=== PATIENT | male | born 1950 | race Caucasian/White ===

== ENCOUNTER 2021-10-11 20:06 | Inpatient (IN) ==
[2021-10-11] MEDS ORDERED: Albuterol/Ipratropium NEB.SOL (2.5/0.5 MG) 3 ML NEB.SOLN INH ONE (20:20)
[2021-10-11] MEDS ORDERED: methylPREDNISolone SOD SUCC 125 mg 2 ML VIAL IV ONE (20:21)
[2021-10-11 20:32] LABS: Hematocrit 42 % (42-52); Hemoglobin 13.2 g/dL (14.0-18.0); Mean Corpuscular HGB Conc 31 g/dL (31-36); Mean Corpuscular Hemoglobin 26 pg (27-31); Mean Corpuscular Volume 84 fL (80-94); Mean Platelet Volume 7.7 fL (7.4-10.4); Platelet Count 154 10^3/uL (150-450); Red Blood Count 4.99 10^6 /uL (4.18-5.48); Red Cell Distribution Width 17 % (10-15); White Blood Count 14.9 10^3/uL (3.5-10.8)
[2021-10-11 20:52] LABS: PCO2 Arterial 59 mmHg (35-45); PO2 Arterial 107 mmHg (80-100)
[2021-10-11] MEDS ORDERED: Sterile Water for Inj 10 ML ONE (20:55)
[2021-10-11 20:59] LABS: High Sens Troponin Baseline 2205 pg/mL (<20)
[2021-10-11] MEDS ORDERED: Lactated Ringers 1000 ml BAG 500 ML IV ONE (21:00)
[2021-10-11 21:10] LABS: ABS Monocytes 3.2 10^3/ul (0-0.8); ABS Neutrophils 10.6 10^3/ul (1.5-7.7); Eosinophil % 0.1 %; Lymphocyte % 6.5 %
[2021-10-11] MEDS ORDERED: Furosemide 40 mg/4 ml IV VIAL IV SLOW PU ONE (21:10)
[2021-10-11 21:17] LABS: ALT 18 U/L (7-52); Albumin 3.5 g/dL (3.2-5.2); Albumin/Globulin Ratio 1.1 (1-3); Alkaline Phosphatase 117 U/L (35-149); Blood Urea Nitrogen 56 mg/dL (6-24); C Reactive Protein 317.81 mg/L (<8.01); CO2 Carbon Dioxide 26 mmol/L (22-32); Calcium 9.3 mg/dL (8.6-10.3); Chloride 104 mmol/L (101-111); Creatine Kinase 183 U/L (10-223); Globulin 3.1 g/dL (2-4); Glucose 189 mg/dL (70-100); Sodium 140 mmol/L (135-145); Total Protein 6.6 g/dL (6.4-8.9)
[2021-10-11 21:39] LABS: Anion Gap 10 mmol/L (2-11)
[2021-10-11] MEDS ORDERED: Piperacillin/Tazobac ADVAN 3.375 GM in NS 0.9% 100 ml BAG 100 ML IV ONE ×2 (21:49→23:25)
[2021-10-11] MEDS ORDERED: Vancomycin 1,000 MG in NS 0.9% 250 ml 250 ML IVPB ONE ×2 (21:50→23:25)
[2021-10-11 22:20] LABS: High Sensitivity Troponin 1 Hr 2756 pg/mL (<20)
[2021-10-11] MEDS ORDERED: Vancomycin 1500 MG IV - x ONCE IVPB ONE (23:00)
[2021-10-11] MEDS ORDERED: Azithromycin 500 mg/250 ml NS 500 MG/250 ML BAG IVPB ONE (23:12)
[2021-10-11 23:22] LABS: Activated Partial Thrombo Time 29.4 seconds (26.0-38.0); INR 1.19 (0.86-1.15)
[2021-10-11] MEDS ORDERED: Albuterol 2.5mg/3 ml (0.083%) NEB.SOLN INH PRN (23:25)
[2021-10-11] MEDS ORDERED: Dextrose 50% Syringe 50 ml 25 GM/50 ML SYRINGE IV PUSH PRN (23:25)
[2021-10-11 23:27] LABS: Urine Appearance Cloudy; Urine Bilirubin Negative (Negative); Urine Blood Negative (Negative); Urine Color Amber; Urine Glucose 2+(150 mg/dL) (Negative); Urine Ketones Trace (Negative); Urine Nitrite Negative (Negative); Urine Protein 2+(100 mg/dL) (Negative); Urine Specific Gravity 1.019 (1.002-1.030); Urine Urobilinogen Positive (Negative)
[2021-10-11 23:36] LABS: Urine Bacteria Absent (Absent); Urine Red Blood Cell Absent (Absent); Urine Squamous Epithelial Cell Present (Absent); Urine White Blood Cell Trace(0-5/hpf) (Absent)
[2021-10-11] MEDS ORDERED: Zosyn per Pharmacy NOTE FOLLOW UP SCH (23:45)
[2021-10-11] MEDS ORDERED: Vancomycin per Pharmacy 1 EA NOTE FOLLOW UP SCH (23:45)
[2021-10-11 23:48] LABS: Urine Benzodiazepine Screen None Detected (None Detect); Urine Cannabinoids Screen Presumptive Positive (None Detect); Urine Opiates Screen None Detected (None Detect)
[2021-10-11 23:58] LABS: Potassium Redraw 5.2 mmol/L (3.5-5.0)
[2021-10-12] MEDS: Albuterol/Ipratropium NEB.SOL (2.5/0.5 MG) 3 ML NEB.SOLN INH SCH ×5 (00:27→18:57)
[2021-10-12 00:29] LABS: ABS Lymphocytes 0.5 10^3/ul (1.0-4.8); ABS Monocytes 1.7 10^3/ul (0-0.8); ABS Neutrophils 7.7 10^3/ul (1.5-7.7); Eosinophil % 0.1 %; Hematocrit 41 % (42-52); Hemoglobin 12.8 g/dL (14.0-18.0); Lymphocyte % 5.4 %; Mean Corpuscular HGB Conc 31 g/dL (31-36); Mean Corpuscular Hemoglobin 26 pg (27-31); Mean Corpuscular Volume 84 fL (80-94); Mean Platelet Volume 7.7 fL (7.4-10.4); Nucleated Red Blood Cells % 0.1; Platelet Count 139 10^3/uL (150-450); Red Blood Count 4.85 10^6 /uL (4.18-5.48); Red Cell Distribution Width 17 % (10-15)
[2021-10-12] MEDS: Heparin 5000 UNITS/ML 1 mL VIAL IV SCH ×5 (00:33→21:58)
[2021-10-12] MEDS: Heparin DRIP 25,000 UNITS BAG 25,000 UNITS/500 ML BAG IV SCH ×3 (00:34→21:41)
[2021-10-12 00:46] LABS: PCO2 Arterial 56 mmHg (35-45); PO2 Arterial 82 mmHg (80-100)
[2021-10-12 00:46] LABS: Potassium 5.1 mmol/L (3.5-5.0)
[2021-10-12 01:21] LABS: HIV 4th Generation Nonreactive (Nonreactive)
[2021-10-12] MEDS ORDERED: NS 0.9% 250 ml 250 ML ONE (02:07)
[2021-10-12] MEDS ORDERED: NS 0.9% 100 ml BAG 100 ML ONE (02:07)
[2021-10-12] MEDS: Lactulose 30 ml UDC PO SCH ×5 (02:35→20:26)
[2021-10-12] MEDS: Aspirin EC 81 mg TAB.EC (enteric coated) PO SCH ×2 (02:35→07:44)
[2021-10-12] MEDS: Lidocaine PATCH 5% PATCH TRANSDERM SCH ×2 (02:36→20:30)
[2021-10-12 02:42] LABS: PCO2 Arterial 55 mmHg (35-45); PO2 Arterial 89 mmHg (80-100)
[2021-10-12] MEDS: ZOSYN 3.375 GM Q8H per EXTENDED INFUSION IV SCH ×2 (03:52→11:39)
[2021-10-12 06:56] LABS: Urine Appearance Turbid; Urine Bilirubin Negative (Negative); Urine Blood 2+ (Negative); Urine Color Amber; Urine Glucose 1+(50 mg/dL) (Negative); Urine Ketones Negative (Negative); Urine Nitrite Negative (Negative); Urine Protein 1+(30 mg/dL) (Negative); Urine Specific Gravity 1.016 (1.002-1.030); Urine Urobilinogen Negative (Negative)
[2021-10-12 06:58] LABS: Urine Creatinine Concentration 151.21 mg/dL
[2021-10-12 07:03] LABS: ABS Lymphocytes 0.6 10^3/ul (1.0-4.8); ABS Monocytes 0.8 10^3/ul (0-0.8); ABS Neutrophils 7.3 10^3/ul (1.5-7.7); Eosinophil % 0.3 %; Hematocrit 37 % (42-52); Hemoglobin 12.2 g/dL (14.0-18.0); Lymphocyte % 7.2 %; Mean Corpuscular HGB Conc 33 g/dL (31-36); Mean Corpuscular Hemoglobin 28 pg (27-31); Mean Corpuscular Volume 84 fL (80-94); Mean Platelet Volume 7.8 fL (7.4-10.4); Platelet Count 146 10^3/uL (150-450); Red Blood Count 4.42 10^6 /uL (4.18-5.48); Red Cell Distribution Width 17 % (10-15); White Blood Count 8.8 10^3/uL (3.5-10.8)
[2021-10-12 07:24] LABS: Urine Bacteria Absent (Absent); Urine Red Blood Cell 3+(>10/hpf) (Absent); Urine Squamous Epithelial Cell Present (Absent); Urine White Blood Cell 2+(11-20/hpf) (Absent)
[2021-10-12] MEDS: Acetaminophen IV 1 GM/100ML 100 ML IV PRN ×2 (08:11→21:27)
[2021-10-12] MEDS ORDERED: Perflutren Lipid Microsphere 3 ML VIAL ONE (08:20)
[2021-10-12 08:44] LABS: Erythrocyte Sed Rate 103 mm/Hr (0-19)
[2021-10-12 08:51] LABS: Calcium 8.6 mg/dL (8.6-10.3); Magnesium 2.3 mg/dL (1.9-2.7); Potassium 4.3 mmol/L (3.5-5.0)
[2021-10-12 08:56] LABS: eGFR CKD-EPI 26.5 (>60)
[2021-10-12 10:18] LABS: Hepatitis B Surface Antigen Nonreactive (Nonreactive)
[2021-10-12 10:23] LABS: Hepatitis A Ab IgM Negative (Negative)
[2021-10-12 10:24] LABS: Hepatitis B Core IgM Nonreactive (Nonreactive)
[2021-10-12 10:51] LABS: Hepatitis C Antibody Reactive (Negative)
[2021-10-12] MEDS: Mometasone/Formoter 200/5 MDI INH SCH ×2 (10:53→18:58)
[2021-10-12 12:26] LABS: High Sensitivity Troponin 1 Hr 4924 pg/mL (<20)
[2021-10-12] MEDS ORDERED: Vancomycin Random Level NOTE FOLLOW UP ONE (13:30)
[2021-10-12] MEDS: cefTRIAXone 1 gm/50 mL D5W 1 GM/50 ML BAG IV SCH (15:27)
[2021-10-12] MEDS ORDERED: Vancomycin 1,250 MG in NS 0.9% 250 ml 250 ML IVPB ONE (16:00)
[2021-10-12 18:10] LABS: Calcium 8.6 mg/dL (8.6-10.3); Potassium 4.4 mmol/L (3.5-5.0)
[2021-10-12 18:21] LABS: eGFR CKD-EPI 23.7 (>60)
[2021-10-12] MEDS: methylPREDNISolone SOD SUCC 40 mg/ml 1 ml VIAL IV SCH (18:24)
[2021-10-12 20:17] LABS: PCO2 Arterial 58 mmHg (35-45); PO2 Arterial 92 mmHg (80-100)
[2021-10-12] MEDS: Azithromycin 500 mg/250 ml NS 500 MG/250 ML BAG IVPB SCH (23:21)
[2021-10-13] MEDS: Albuterol/Ipratropium NEB.SOL (2.5/0.5 MG) 3 ML NEB.SOLN INH SCH ×4 (01:31→20:01)
[2021-10-13] MEDS: methylPREDNISolone SOD SUCC 40 mg/ml 1 ml VIAL IV SCH ×3 (01:43→18:12)
[2021-10-13] MEDS: NORMOSOL-R pH 7.4 1000 mL BAG 1,000 ML IV SCH ×2 (01:43→22:17)
[2021-10-13 04:45] LABS: Hematocrit 36 % (42-52); Hemoglobin 11.2 g/dL (14.0-18.0); Mean Corpuscular HGB Conc 32 g/dL (31-36); Mean Corpuscular Hemoglobin 26 pg (27-31); Mean Corpuscular Volume 84 fL (80-94); Mean Platelet Volume 7.6 fL (7.4-10.4); Platelet Count 126 10^3/uL (150-450); Red Blood Count 4.24 10^6 /uL (4.18-5.48); Red Cell Distribution Width 17 % (10-15); White Blood Count 11.9 10^3/uL (3.5-10.8)
[2021-10-13 05:15] LABS: Calcium 8.6 mg/dL (8.6-10.3); Potassium 3.8 mmol/L (3.5-5.0); Vancomycin Random 17.9 mcg/mL; eGFR CKD-EPI 27.7 (>60)
[2021-10-13] MEDS ORDERED: Vancomycin Random Level NOTE FOLLOW UP ONE (06:00)
[2021-10-13] MEDS: Acetaminophen IV 1 GM/100ML 100 ML IV PRN (06:05)
[2021-10-13] MEDS: Aspirin EC 81 mg TAB.EC (enteric coated) PO SCH (07:26)
[2021-10-13] MEDS: Lactulose 30 ml UDC PO SCH ×4 (07:26→20:08)
[2021-10-13] MEDS: Mometasone/Formoter 200/5 MDI INH SCH ×2 (08:35→20:01)
[2021-10-13 09:16] LABS: PCO2 Arterial 67 mmHg (35-45); PO2 Arterial 115 mmHg (80-100)
[2021-10-13 09:48] LABS: ABS Lymphocytes 0.7 10^3/ul (1.0-4.8); ABS Monocytes 1.3 10^3/ul (0-0.8); ABS Neutrophils 9.9 10^3/ul (1.5-7.7); Lymphocyte % 5.5 %
[2021-10-13] MEDS ORDERED: Sodium Chloride(INHALANT) 7% 4 ML NEB.SOLN INH ONE (10:00)
[2021-10-13] MEDS ORDERED: Vancomycin 750 MG in NS 0.9% 250 ML IVPB ONE (11:00)
[2021-10-13 12:15] LABS: TB1 Ag minus Nil Result -0.03 IU/mL; TB2 Ag minus Nil Result -0.03 IU/mL
[2021-10-13 12:56] LABS: QuantiferonTb Gold Plus Result Indeterminate (Negative)
[2021-10-13 13:02] LABS: Complement C3 107 mg/dL (75 - 175)
[2021-10-13 13:04] LABS: PCO2 Arterial 65 mmHg (35-45); PO2 Arterial 120 mmHg (80-100)
[2021-10-13] MEDS: cefTRIAXone 1 gm/50 mL D5W 1 GM/50 ML BAG IV SCH (14:26)
[2021-10-13 16:51] LABS: SS-A/Ro Antibody <0.2 U; SS-B/La Antibody <0.2 U
[2021-10-13 18:30] LABS: Adenovirus Undetected (Undetected); Bordetella parapertussis Undetected (Undetected); Bordetella pertussis Undetected (Undetected); Chlamydophila pneumoniae Undetected (Undetected); Coronavirus 229E Undetected (Undetected); Coronavirus HKU1 Undetected (Undetected); Coronavirus NL63 Undetected (Undetected); Coronavirus OC43 Undetected (Undetected); Human Metapneumovirus Undetected (Undetected); Human Rhinovirus/Enterovirus Undetected (Undetected); Influenza A Undetected (Undetected); Influenza B Undetected (Undetected); Mycoplasmoides pneumoniae Undetected (Undetected); Parainfluenza Virus 1 Undetected (Undetected); Parainfluenza Virus 2 Undetected (Undetected); Parainfluenza Virus 3 Undetected (Undetected); Parainfluenza Virus 4 Undetected (Undetected); Respiratory Syncytial Virus Undetected (Undetected); Specimen Source NASOPHARYNGEAL SWAB
[2021-10-13] MEDS: Lidocaine PATCH 5% PATCH TRANSDERM SCH (20:09)
[2021-10-13 20:35] LABS: Calcium 8.5 mg/dL (8.6-10.3); Magnesium 2.6 mg/dL (1.9-2.7); Potassium 3.8 mmol/L (3.5-5.0); eGFR CKD-EPI 38.5 (>60)
[2021-10-13] MEDS: Azithromycin 500 mg/250 ml NS 500 MG/250 ML BAG IVPB SCH (23:05)
[2021-10-14] MEDS: methylPREDNISolone SOD SUCC 40 mg/ml 1 ml VIAL IV SCH ×3 (00:58→18:22)
[2021-10-14] MEDS: Albuterol/Ipratropium NEB.SOL (2.5/0.5 MG) 3 ML NEB.SOLN INH SCH ×5 (02:22→23:42)
[2021-10-14 05:27] LABS: Hematocrit 36 % (42-52); Hemoglobin 11.2 g/dL (14.0-18.0); Mean Corpuscular HGB Conc 32 g/dL (31-36); Mean Corpuscular Hemoglobin 26 pg (27-31); Mean Corpuscular Volume 83 fL (80-94); Platelet Count 133 10^3/uL (150-450); Red Blood Count 4.31 10^6 /uL (4.18-5.48); Red Cell Distribution Width 17 % (10-15); White Blood Count 12.5 10^3/uL (3.5-10.8)
[2021-10-14] MEDS ORDERED: Vancomycin Random Level NOTE FOLLOW UP ONE (06:00)
[2021-10-14 06:24] LABS: Calcium 8.7 mg/dL (8.6-10.3); Potassium 3.7 mmol/L (3.5-5.0); Vancomycin Random 14.4 mcg/mL; eGFR CKD-EPI 47.9 (>60)
[2021-10-14 06:57] LABS: Microcytosis 1+
[2021-10-14 06:58] LABS: ABS Basophils 0.1 10^3/ul (0-0.2); ABS Lymphocytes 0.5 10^3/ul (1.0-4.8); ABS Monocytes 0.6 10^3/ul (0-0.8); ABS Neutrophils 11.3 10^3/ul (1.5-7.7); Lymphocyte % 3.7 %
[2021-10-14] MEDS: Mometasone/Formoter 200/5 MDI INH SCH ×2 (07:07→19:46)
[2021-10-14] MEDS ORDERED: Bumetanide IV 0.25 MG/ML 4 ml VIAL (1 mg) SLOW PUSH ONE (08:16)
[2021-10-14] MEDS: NORMOSOL-R pH 7.4 1000 mL BAG 1,000 ML IV SCH (08:26)
[2021-10-14] MEDS: Lactulose 30 ml UDC PO SCH (08:29)
[2021-10-14] MEDS: Aspirin EC 81 mg TAB.EC (enteric coated) PO SCH (08:29)
[2021-10-14] MEDS ORDERED: Vancomycin 1,250 MG IV x ONCE IVPB ONE (09:00)
[2021-10-14] MEDS: cefTRIAXone 1 gm/50 mL D5W 1 GM/50 ML BAG IV SCH (12:21)
[2021-10-14] MEDS ORDERED: Albuterol/Ipratropium NEB.SOL (2.5/0.5 MG) 3 ML NEB.SOLN INH SCH (13:00)
[2021-10-14 13:20] LABS: Cyclic Citrullinated Pept IgG <15.6 U
[2021-10-14 15:14] LABS: Mycoplasma pneumoniae IgG Ab Negative (Negative); Mycoplasma pneumoniae IgM Ab Negative (Negative)
[2021-10-14] MEDS: Lidocaine PATCH 5% PATCH TRANSDERM SCH (20:44)
[2021-10-14] MEDS: Azithromycin 500 mg/250 ml NS 500 MG/250 ML BAG IVPB SCH (22:54)
[2021-10-15] MEDS: methylPREDNISolone SOD SUCC 40 mg/ml 1 ml VIAL IV SCH ×2 (00:30→08:13)
[2021-10-15] MEDS: Acetaminophen IV 1 GM/100ML 100 ML IV PRN (03:36)
[2021-10-15] MEDS: Albuterol/Ipratropium NEB.SOL (2.5/0.5 MG) 3 ML NEB.SOLN INH SCH ×2 (04:26→07:41)
[2021-10-15] MEDS ORDERED: Vancomycin Random Level NOTE FOLLOW UP ONE (06:00)
[2021-10-15] MEDS: Mometasone/Formoter 200/5 MDI INH SCH ×2 (07:54→21:02)
[2021-10-15] MEDS ORDERED: Albuterol/Ipratropium NEB.SOL (2.5/0.5 MG) 3 ML NEB.SOLN INH PRN ×2 (07:57→09:11)
[2021-10-15] MEDS: Aspirin EC 81 mg TAB.EC (enteric coated) PO SCH (08:13)
[2021-10-15 11:17] LABS: Hematocrit 34 % (42-52); Hemoglobin 10.6 g/dL (14.0-18.0); Mean Corpuscular HGB Conc 32 g/dL (31-36); Mean Corpuscular Hemoglobin 26 pg (27-31); Mean Corpuscular Volume 82 fL (80-94); Mean Platelet Volume 7.8 fL (7.4-10.4); Platelet Count 134 10^3/uL (150-450); Red Blood Count 4.07 10^6 /uL (4.18-5.48); Red Cell Distribution Width 16 % (10-15)
[2021-10-15 11:22] LABS: ABS Lymphocytes 0.4 10^3/ul (1.0-4.8); ABS Monocytes 0.9 10^3/ul (0-0.8); ABS Neutrophils 7.7 10^3/ul (1.5-7.7); Lymphocyte % 4.1 %; Nucleated Red Blood Cells % 0.2
[2021-10-15 12:06] LABS: Calcium 9.1 mg/dL (8.6-10.3); Magnesium 2.4 mg/dL (1.9-2.7); Phosphorus 1.3 mg/dL (2.5-5.0); Potassium 3.4 mmol/L (3.5-5.0); eGFR CKD-EPI 61.6 (>60)
[2021-10-15] MEDS: cefTRIAXone 1 gm/50 mL D5W 1 GM/50 ML BAG IV SCH (12:46)
[2021-10-15] MEDS ORDERED: Potassium Phosphate IV 15 MMOLE in NS 0.9% 250 ml 250 ML IVPB ONE (14:47)
[2021-10-15] MEDS: Lidocaine PATCH 5% PATCH TRANSDERM SCH (21:02)
[2021-10-16] MEDS: Mometasone/Formoter 200/5 MDI INH SCH ×2 (07:40→19:21)
[2021-10-16] MEDS: Aspirin EC 81 mg TAB.EC (enteric coated) PO SCH (09:06)
[2021-10-16] MEDS: cefTRIAXone 1 gm/50 mL D5W 1 GM/50 ML BAG IV SCH (11:29)
[2021-10-17] MEDS: Lidocaine PATCH 5% PATCH TRANSDERM SCH ×2 (00:47→22:30)
[2021-10-17] MEDS: Mometasone/Formoter 200/5 MDI INH SCH ×2 (07:54→20:52)
[2021-10-17] MEDS: Aspirin EC 81 mg TAB.EC (enteric coated) PO SCH (08:21)
[2021-10-17 10:58] LABS: Hematocrit 37 % (42-52); Hemoglobin 11.7 g/dL (14.0-18.0); Mean Corpuscular HGB Conc 32 g/dL (31-36); Mean Corpuscular Hemoglobin 27 pg (27-31); Mean Corpuscular Volume 83 fL (80-94); Mean Platelet Volume 7.9 fL (7.4-10.4); Platelet Count 122 10^3/uL (150-450); Red Blood Count 4.39 10^6 /uL (4.18-5.48); Red Cell Distribution Width 17 % (10-15); White Blood Count 11.2 10^3/uL (3.5-10.8)
[2021-10-17 11:38] LABS: Calcium 9.6 mg/dL (8.6-10.3); Magnesium 2.4 mg/dL (1.9-2.7); Potassium 4.4 mmol/L (3.5-5.0); eGFR CKD-EPI 72.6 (>60)
[2021-10-17 13:16] LABS: ABS Lymphocytes 0.6 10^3/ul (1.0-4.8); ABS Monocytes 0.8 10^3/ul (0-0.8); ABS Neutrophils 9.7 10^3/ul (1.5-7.7); Eosinophil % 0.1 %; Lymphocyte % 5.8 %; Nucleated Red Blood Cells % 0.1
[2021-10-17 21:29] LABS: Anaplasma phagocytophilum Negative (Negative); B. miyamotoi PCR, B Negative (Negative); Babesia divergens/MO-1 Negative (Negative); Babesia ducani Negative (Negative); Ehrlichia chaffeensis Negative (Negative); Ehrlichia ewingii/canis Negative (Negative); Ehrlichia muris eauclairensis Negative (Negative)
[2021-10-18] MEDS: Mometasone/Formoter 200/5 MDI INH SCH ×2 (07:38→19:50)
[2021-10-18] MEDS: Aspirin EC 81 mg TAB.EC (enteric coated) PO SCH (08:15)
[2021-10-18] MEDS: Lidocaine PATCH 5% PATCH TRANSDERM SCH (22:27)
[2021-10-19] MEDS: Mometasone/Formoter 200/5 MDI INH SCH ×2 (07:50→19:46)
[2021-10-19] MEDS: Aspirin EC 81 mg TAB.EC (enteric coated) PO SCH (08:50)
[2021-10-19 14:07] LABS: Calcium 9.3 mg/dL (8.6-10.3); Magnesium 2.2 mg/dL (1.9-2.7); eGFR CKD-EPI 74.2 (>60)
[2021-10-19] MEDS: Lidocaine PATCH 5% PATCH TRANSDERM SCH (22:14)
[2021-10-20 06:06] LABS: ABS Lymphocytes 0.6 10^3/ul (1.0-4.8); ABS Monocytes 0.6 10^3/ul (0-0.8); ABS Neutrophils 14.2 10^3/ul (1.5-7.7); Hematocrit 34 % (42-52); Hemoglobin 10.9 g/dL (14.0-18.0); Lymphocyte % 3.7 %; Mean Corpuscular HGB Conc 32 g/dL (31-36); Mean Corpuscular Hemoglobin 27 pg (27-31); Mean Corpuscular Volume 82 fL (80-94); Mean Platelet Volume 8.6 fL (7.4-10.4); Platelet Count 105 10^3/uL (150-450); Red Blood Count 4.08 10^6 /uL (4.18-5.48); Red Cell Distribution Width 16 % (10-15); White Blood Count 15.4 10^3/uL (3.5-10.8)
[2021-10-20 06:31] LABS: Calcium 9.2 mg/dL (8.6-10.3); Magnesium 2.2 mg/dL (1.9-2.7); Potassium 4.6 mmol/L (3.5-5.0); eGFR CKD-EPI 73.4 (>60)
[2021-10-20] MEDS ORDERED: ceFAZolin 1 GM/10 ML flush SYRINGE for pocket flush (cardiology) FLUSH ONE (06:45)
[2021-10-20] MEDS ORDERED: ceFAZolin 2 GM in NS PREMIX 2 GM/100 ML BAG IVPB ONE (07:00)
[2021-10-20] MEDS ORDERED: NS 0.9% 1000 ml BAG 1,000 ML IV SCH (07:00)
[2021-10-20] MEDS: Aspirin EC 81 mg TAB.EC (enteric coated) PO SCH (08:10)
[2021-10-20] MEDS: Mometasone/Formoter 200/5 MDI INH SCH ×2 (08:49→19:07)
[2021-10-20] MEDS: Lidocaine PATCH 5% PATCH TRANSDERM SCH (21:49)
[2021-10-21] MEDS ORDERED: NS 0.9% 1000 ml BAG 1,000 ML IV SCH (01:15)
[2021-10-21 06:23] LABS: ABS Eosinophils 0.1 10^3/ul (0-0.6); ABS Lymphocytes 1.1 10^3/ul (1.0-4.8); ABS Monocytes 0.8 10^3/ul (0-0.8); ABS Neutrophils 10.5 10^3/ul (1.5-7.7); Eosinophil % 0.4 %; Hematocrit 34 % (42-52); Hemoglobin 11.2 g/dL (14.0-18.0); Lymphocyte % 8.6 %; Mean Corpuscular HGB Conc 33 g/dL (31-36); Mean Corpuscular Hemoglobin 27 pg (27-31); Mean Corpuscular Volume 83 fL (80-94); Mean Platelet Volume 8.2 fL (7.4-10.4); Platelet Count 108 10^3/uL (150-450); Red Cell Distribution Width 16 % (10-15); White Blood Count 12.4 10^3/uL (3.5-10.8)
[2021-10-21 06:41] LABS: Blood Urea Nitrogen 40 mg/dL (6-24); CO2 Carbon Dioxide 35 mmol/L (22-32); Calcium 9.2 mg/dL (8.6-10.3); Chloride 105 mmol/L (101-111); Glucose 138 mg/dL (70-100); Magnesium 2.1 mg/dL (1.9-2.7); Potassium 4.8 mmol/L (3.5-5.0); Sodium 139 mmol/L (135-145); eGFR CKD-EPI 71.8 (>60)
[2021-10-21] MEDS ORDERED: ceFAZolin 1 GM/10 ML flush SYRINGE for pocket flush (cardiology) FLUSH ONE (06:45)
[2021-10-21] MEDS ORDERED: ceFAZolin VIAL 1 GM in NS 0.9% 50 ML 50 ML IVPB ONE (06:45)
[2021-10-21] MEDS ORDERED: ceFAZolin 2 GM in NS PREMIX 2 GM/100 ML BAG IVPB ONE (06:45)
[2021-10-21] MEDS ORDERED: Lidocaine 1% MPF 5 ML VIAL ONE (06:50)
[2021-10-21] MEDS ORDERED: fentaNYL 100 mcg/2 ml 50 MCG/ML VIAL ONE (06:56)
[2021-10-21] MEDS ORDERED: Midazolam 5 mg/5 ml VIAL 1 mg/ml 5 ml VIAL (5 mg) ONE (06:56)
[2021-10-21 08:03] LABS: C Reactive Protein 5.67 mg/L (<8.01)
[2021-10-21] MEDS: Mometasone/Formoter 200/5 MDI INH SCH ×2 (08:18→19:33)
[2021-10-21] MEDS: Aspirin EC 81 mg TAB.EC (enteric coated) PO SCH (09:20)
[2021-10-21] MEDS: ceFAZolin 1 GM ADVAN 1 GM in NS 0.9% 50 ML 50 ML IVPB SCH ×2 (15:23→23:46)
[2021-10-21] MEDS: Lidocaine PATCH 5% PATCH TRANSDERM SCH (22:00)
[2021-10-22] MEDS: Mometasone/Formoter 200/5 MDI INH SCH ×2 (08:27→19:43)
[2021-10-22 08:52] LABS: ABS Monocytes 0.8 10^3/ul (0-0.8); ABS Neutrophils 9.5 10^3/ul (1.5-7.7); Eosinophil % 0.3 %; Hematocrit 35 % (42-52); Hemoglobin 11.4 g/dL (14.0-18.0); Lymphocyte % 8.8 %; Mean Corpuscular HGB Conc 33 g/dL (31-36); Mean Corpuscular Hemoglobin 27 pg (27-31); Mean Corpuscular Volume 82 fL (80-94); Mean Platelet Volume 7.9 fL (7.4-10.4); Platelet Count 105 10^3/uL (150-450); Red Blood Count 4.24 10^6 /uL (4.18-5.48); Red Cell Distribution Width 17 % (10-15); White Blood Count 11.4 10^3/uL (3.5-10.8)
[2021-10-22] MEDS: ceFAZolin 1 GM ADVAN 1 GM in NS 0.9% 50 ML 50 ML IVPB SCH (09:34)
[2021-10-22] MEDS: Aspirin EC 81 mg TAB.EC (enteric coated) PO SCH (09:34)
[2021-10-22 09:43] LABS: Potassium 4.4 mmol/L (3.5-5.0); eGFR CKD-EPI 80.5 (>60)
[2021-10-22 11:59] VITALS: BP 127/89
== END 2021-10-22 14:30 | disposition home or self-care (01) | DRG 853 ==
LOC: ED 20:06 → SUATTDRO 23:17 → EDHOLD 23:17 → ICU 10-12 00:20 → MEDTELE 10-17 21:10
PROVIDERS: ADMIT Internal Medicine; ATTEND Hospitalist

== ENCOUNTER 2022-03-02 23:27 | Inpatient (IN) ==
[2022-03-02] MEDS ORDERED: methylPREDNISolone SOD SUCC 125 mg 2 ML VIAL IV ONE (23:42)
[2022-03-02] MEDS ORDERED: Albuterol/Ipratropium NEB.SOL (2.5/0.5 MG) 3 ML NEB.SOLN INH ONE (23:43)
[2022-03-03 00:24] LABS: PCO2 Arterial 43 mmHg (35-45); PO2 Arterial 77 mmHg (80-100)
[2022-03-03 00:24] LABS: Hematocrit 38 % (42-52); Hemoglobin 12.1 g/dL (14.0-18.0); Mean Corpuscular HGB Conc 32 g/dL (31-36); Mean Corpuscular Hemoglobin 26 pg (27-31); Mean Corpuscular Volume 83 fL (80-94); Mean Platelet Volume 7.7 fL (7.4-10.4); Platelet Count 92 10^3/uL (150-450); Red Blood Count 4.57 10^6 /uL (4.18-5.48); Red Cell Distribution Width 16 % (10-15); White Blood Count 9.7 10^3/uL (3.5-10.8)
[2022-03-03 00:48] LABS: INR 1.16 (0.89-1.11)
[2022-03-03 01:03] LABS: Albumin 3.5 g/dL (3.2-5.2); Albumin/Globulin Ratio 1.5 (1-3); C Reactive Protein 67.85 mg/L (<8.01); Calcium 9.2 mg/dL (8.6-10.3); Globulin 2.3 g/dL (2-4); Potassium 4.3 mmol/L (3.5-5.0); Total Bilirubin 0.9 mg/dL (0.2-1.0); Total Protein 5.8 g/dL (6.4-8.9); eGFR CKD-EPI 69.8 (>60)
[2022-03-03 02:18] LABS: RBC Morphology Normal (Normal)
[2022-03-03 02:19] LABS: ABS Lymphocytes 0.5 10^3/ul (1.0-4.8); ABS Neutrophils 8.2 10^3/ul (1.5-7.7); Lymphocyte % 5.5 %
[2022-03-03 02:21] LABS: High Sensitivity Troponin 1 Hr 1788 pg/mL (<20)
[2022-03-03] MEDS ORDERED: Iodixanol (CONTRAST) 320 MG/ML 100 ML SDV IV ONE (02:37)
[2022-03-03 03:57] LABS: INR 1.18 (0.89-1.11)
[2022-03-03 04:37] LABS: Albumin 3.4 g/dL (3.2-5.2); Albumin/Globulin Ratio 1.4 (1-3); Calcium 9.1 mg/dL (8.6-10.3); Globulin 2.4 g/dL (2-4); Potassium 4.5 mmol/L (3.5-5.0); Total Bilirubin 0.9 mg/dL (0.2-1.0); Total Protein 5.8 g/dL (6.4-8.9); eGFR CKD-EPI 77.2 (>60)
[2022-03-03] MEDS ORDERED: Dextrose 50% Syringe 50 ml 25 GM/50 ML SYRINGE IV PUSH PRN (04:41)
[2022-03-03] MEDS ORDERED: Remdesivir 100 mg Vial 200 MG in NS 0.9% 250 ml 210 ML IV ONE (05:00)
[2022-03-03] MEDS: Enoxaparin 40 MG/0.4 ML SYR SUBCUT SCH (08:42)
[2022-03-03] MEDS: Aspirin EC 81 mg TAB.EC (enteric coated) PO SCH (09:22)
[2022-03-03 10:22] LABS: High Sensitivity Troponin 3 Hr 849 pg/mL (<20)
[2022-03-03] MEDS: Mometasone/Formoter 200/5 MDI INH SCH ×2 (16:32→19:57)
[2022-03-04] MEDS: Enoxaparin 40 MG/0.4 ML SYR SUBCUT SCH (05:57)
[2022-03-04 06:40] LABS: ABS Lymphocytes 0.7 10^3/ul (1.0-4.8); ABS Monocytes 0.9 10^3/ul (0-0.8); ABS Neutrophils 10.7 10^3/ul (1.5-7.7); Hematocrit 35 % (42-52); Hemoglobin 11.3 g/dL (14.0-18.0); Lymphocyte % 5.4 %; Mean Corpuscular HGB Conc 32 g/dL (31-36); Mean Corpuscular Hemoglobin 26 pg (27-31); Mean Corpuscular Volume 82 fL (80-94); Mean Platelet Volume 8.4 fL (7.4-10.4); Platelet Count 104 10^3/uL (150-450); Red Blood Count 4.26 10^6 /uL (4.18-5.48); Red Cell Distribution Width 16 % (10-15); White Blood Count 12.4 10^3/uL (3.5-10.8)
[2022-03-04 06:42] LABS: INR 1.1 (0.89-1.11)
[2022-03-04 07:24] LABS: Albumin/Globulin Ratio 1.3 (1-3); Calcium 8.8 mg/dL (8.6-10.3); Globulin 2.4 g/dL (2-4); Potassium 4.3 mmol/L (3.5-5.0); Total Bilirubin 0.5 mg/dL (0.2-1.0); Total Protein 5.4 g/dL (6.4-8.9)
[2022-03-04] MEDS: Mometasone/Formoter 200/5 MDI INH SCH ×2 (08:01→20:18)
[2022-03-04] MEDS: Aspirin EC 81 mg TAB.EC (enteric coated) PO SCH (08:11)
[2022-03-04] MEDS: Remdesivir 100 mg Vial 100 MG in NS 0.9% 250 ml 230 ML IV SCH (08:12)
[2022-03-04] MEDS ORDERED: Lactated Ringers 1000 ml BAG 1,000 ML IV SCH ×2 (18:00→21:37)
[2022-03-04] MEDS: Benzocaine (plain) Lozenge 15 MG MT PRN (20:22)
[2022-03-05] MEDS: Enoxaparin 40 MG/0.4 ML SYR SUBCUT SCH (05:03)
[2022-03-05 05:48] LABS: INR 1.1 (0.89-1.11)
[2022-03-05 06:17] LABS: Albumin 3.1 g/dL (3.2-5.2); Albumin/Globulin Ratio 1.2 (1-3); Globulin 2.6 g/dL (2-4); Potassium 4.2 mmol/L (3.5-5.0); Total Bilirubin 0.6 mg/dL (0.2-1.0); Total Protein 5.7 g/dL (6.4-8.9); eGFR CKD-EPI 95.5 (>60)
[2022-03-05] MEDS: Mometasone/Formoter 200/5 MDI INH SCH ×2 (07:31→17:00)
[2022-03-05] MEDS: Aspirin EC 81 mg TAB.EC (enteric coated) PO SCH (08:25)
[2022-03-05] MEDS: Remdesivir 100 mg Vial 100 MG in NS 0.9% 250 ml 230 ML IV SCH (08:29)
[2022-03-05 09:24] LABS: Hematocrit 35 % (42-52); Hemoglobin 11.2 g/dL (14.0-18.0); Mean Corpuscular HGB Conc 32 g/dL (31-36); Mean Corpuscular Hemoglobin 26 pg (27-31); Mean Corpuscular Volume 82 fL (80-94); Mean Platelet Volume 8.8 fL (7.4-10.4); Platelet Count 112 10^3/uL (150-450); Red Blood Count 4.31 10^6 /uL (4.18-5.48); Red Cell Distribution Width 16 % (10-15); White Blood Count 9.5 10^3/uL (3.5-10.8)
[2022-03-05] MEDS: Albuterol HFA INHALER 8 gm MDI INH PRN (17:00)
[2022-03-05] MEDS: Benzocaine (plain) Lozenge 15 MG MT PRN (17:48)
[2022-03-06] MEDS: Enoxaparin 40 MG/0.4 ML SYR SUBCUT SCH ×2 (06:02→08:29)
[2022-03-06 06:47] LABS: INR 1.15 (0.89-1.11)
[2022-03-06 06:56] LABS: Albumin 2.8 g/dL (3.2-5.2); Albumin/Globulin Ratio 1.3 (1-3); Calcium 8.7 mg/dL (8.6-10.3); Globulin 2.2 g/dL (2-4); Potassium 4.3 mmol/L (3.5-5.0); Total Bilirubin 0.6 mg/dL (0.2-1.0); eGFR CKD-EPI 97.9 (>60)
[2022-03-06] MEDS: Mometasone/Formoter 200/5 MDI INH SCH ×2 (08:09→20:05)
[2022-03-06] MEDS: Albuterol HFA INHALER 8 gm MDI INH PRN (08:09)
[2022-03-06] MEDS: Remdesivir 100 mg Vial 100 MG in NS 0.9% 250 ml 230 ML IV SCH (08:29)
[2022-03-06] MEDS: Aspirin EC 81 mg TAB.EC (enteric coated) PO SCH (08:31)
[2022-03-06] MEDS ORDERED: Lactated Ringers 1000 ml BAG 1,000 ML IV ONE (12:13)
[2022-03-06] MEDS: hydrALAZINE 20 mg/ml 1 ML Vial IV IV SLOW PU PRN ×2 (15:04→23:44)
[2022-03-06] MEDS ORDERED: Furosemide 40 mg/4 ml IV VIAL IV SLOW PU ONE (15:06)
[2022-03-06] MEDS: Benzocaine (plain) Lozenge 15 MG MT PRN (23:43)
[2022-03-07 06:38] LABS: INR 1.16 (0.89-1.11)
[2022-03-07 07:14] LABS: Albumin/Globulin Ratio 1.4 (1-3); Calcium 8.7 mg/dL (8.6-10.3); Globulin 2.1 g/dL (2-4); Total Bilirubin 0.6 mg/dL (0.2-1.0); Total Protein 5.1 g/dL (6.4-8.9); eGFR CKD-EPI 95.1 (>60)
[2022-03-07] MEDS: Mometasone/Formoter 200/5 MDI INH SCH ×2 (08:03→19:43)
[2022-03-07 08:09] LABS: ABS Lymphocytes 0.7 10^3/ul (1.0-4.8); ABS Monocytes 0.5 10^3/ul (0-0.8); ABS Neutrophils 5.6 10^3/ul (1.5-7.7); Eosinophil % 0.1 %; Hematocrit 34 % (42-52); Hemoglobin 11.2 g/dL (14.0-18.0); Lymphocyte % 9.7 %; Mean Corpuscular HGB Conc 33 g/dL (31-36); Mean Corpuscular Hemoglobin 27 pg (27-31); Mean Corpuscular Volume 81 fL (80-94); Mean Platelet Volume 8.8 fL (7.4-10.4); Platelet Count 106 10^3/uL (150-450); Red Blood Count 4.24 10^6 /uL (4.18-5.48); Red Cell Distribution Width 16 % (10-15); White Blood Count 6.8 10^3/uL (3.5-10.8)
[2022-03-07] MEDS: Aspirin EC 81 mg TAB.EC (enteric coated) PO SCH (08:12)
[2022-03-07] MEDS: Remdesivir 100 mg Vial 100 MG in NS 0.9% 250 ml 230 ML IV SCH (08:15)
[2022-03-07] MEDS: Enoxaparin 40 MG/0.4 ML SYR SUBCUT SCH (08:17)
[2022-03-07] MEDS: hydrALAZINE 20 mg/ml 1 ML Vial IV IV SLOW PU PRN (13:01)
[2022-03-07] MEDS: Albuterol HFA INHALER 8 gm MDI INH PRN (22:43)
[2022-03-08 07:02] LABS: INR 1.18 (0.89-1.11)
[2022-03-08 07:23] LABS: Albumin 2.8 g/dL (3.2-5.2); Albumin/Globulin Ratio 1.3 (1-3); Calcium 8.8 mg/dL (8.6-10.3); Globulin 2.1 g/dL (2-4); Potassium 4.3 mmol/L (3.5-5.0); Total Bilirubin 0.5 mg/dL (0.2-1.0); Total Protein 4.9 g/dL (6.4-8.9); eGFR CKD-EPI 95.5 (>60)
[2022-03-08] MEDS: hydrALAZINE 20 mg/ml 1 ML Vial IV IV SLOW PU PRN ×2 (08:05→21:40)
[2022-03-08] MEDS: Enoxaparin 40 MG/0.4 ML SYR SUBCUT SCH (08:09)
[2022-03-08] MEDS: Aspirin EC 81 mg TAB.EC (enteric coated) PO SCH (08:10)
[2022-03-08] MEDS: Mometasone/Formoter 200/5 MDI INH SCH ×2 (09:47→19:46)
[2022-03-09] MEDS: hydrALAZINE 20 mg/ml 1 ML Vial IV IV SLOW PU PRN (04:22)
[2022-03-09] MEDS: Mometasone/Formoter 200/5 MDI INH SCH (07:55)
[2022-03-09] MEDS: Aspirin EC 81 mg TAB.EC (enteric coated) PO SCH (08:29)
[2022-03-09] MEDS: Enoxaparin 40 MG/0.4 ML SYR SUBCUT SCH (08:34)
[2022-03-09 12:01] VITALS: BP 150/71
== END 2022-03-09 16:30 | disposition home or self-care (01) | DRG 177 ==
LOC: ED 23:27 → SUATTDRO 03-03 04:34 → EDHOLD 03-03 04:34 → MED 03-03 16:14 → EDHOLD 03-03 16:19
PROVIDERS: ADMIT Internal Medicine; ATTEND Internal Medicine

== ENCOUNTER 2023-05-29 11:55 | Inpatient (IN) ==
[2023-05-29] MEDS ORDERED: Albuterol/Ipratropium NEB.SOL (2.5/0.5 MG) 3 ML NEB.SOLN INH ONE ×2 (12:26→13:25)
[2023-05-29 13:09] LABS: ABS Basophils 0.1 10^3/uL (0.0-0.1); ABS Eosinophils 0.2 10^3/uL (0.0-0.5); ABS Lymphocytes 1.6 10^3/uL (1.0-4.8); ABS Monocytes 0.7 10^3/uL (0.0-1.1); ABS Neutrophils 4.6 10^3/uL (1.5-7.6); Eosinophil % 2.4 %; Hematocrit 32.6 % (38-53); Hemoglobin 10.9 g/dL (13.2-16.3); Lymphocyte % 22.5 %; Mean Corpuscular Hgb Conc 33.4 g/dL (31-36); Mean Corpuscular Volume 83.6 fL (80-97); Mean Platelet Volume 7.8 fL (7.5-11.2); Platelet Count 116 10^3/uL (150-450); Red Cell Distribution Width 15.3 % (12-17); White Blood Count 7.1 10^3/uL (3.6-10.2)
[2023-05-29 13:23] LABS: INR 1.08 (0.83-1.13)
[2023-05-29 13:27] LABS: Albumin 3.4 g/dL (3.2-5.2); Albumin/Globulin Ratio 1.1 (1-3); Calcium 9.6 mg/dL (8.6-10.3); Creatinine, Serum 1.13 mg/dL (0.67-1.17); Globulin 3.2 g/dL (2-4); Total Protein 6.6 g/dL (6.4-8.9); eGFR CKD-EPI 68.6 (>60)
[2023-05-29] MEDS ORDERED: Furosemide 40 mg/4 ml IV VIAL IV SLOW PU ONE (13:57)
[2023-05-29] MEDS ORDERED: methylPREDNISolone SOD SUCC 40 mg/ml 1 ml VIAL IV ONE (16:23)
[2023-05-29] MEDS ORDERED: Albuterol/Ipratropium NEB.SOL (2.5/0.5 MG) 3 ML NEB.SOLN INH PRN (16:24)
[2023-05-29] MEDS: Nicotine PATCH 14 MG/24 HR PATCH TRANSDERM SCH (17:06)
[2023-05-29 17:46] LABS: C Reactive Protein 2.36 mg/L (<8.01)
[2023-05-29] MEDS: Enoxaparin 40 MG/0.4 ML SYR SUBCUT SCH (17:58)
[2023-05-29] MEDS: cefTRIAXone 1 gm/50 mL D5W 1 GM/50 ML BAG IV SCH (18:33)
[2023-05-29] MEDS: Azithromycin 500 mg/250 ml NS 500 MG/250 ML BAG IVPB SCH (19:39)
[2023-05-29] MEDS: Albuterol/Ipratropium NEB.SOL (2.5/0.5 MG) 3 ML NEB.SOLN INH SCH (20:22)
[2023-05-30 06:27] LABS: ABS Lymphocytes 0.7 10^3/uL (1.0-4.8); ABS Monocytes 0.2 10^3/uL (0.0-1.1); ABS Neutrophils 5.5 10^3/uL (1.5-7.6); ABS Nucleated RBC 0.01 10^3/ul; Hemoglobin 10.2 g/dL (13.2-16.3); Lymphocyte % 10.3 %; Mean Corpuscular Hemoglobin 28.4 pg (27-33); Mean Corpuscular Hgb Conc 34.1 g/dL (31-36); Mean Corpuscular Volume 83.3 fL (80-97); Mean Platelet Volume 8.1 fL (7.5-11.2); Nucleated Red Blood Cells % 0.1 %/100WBC (0.0-0.8); Platelet Count 107 10^3/uL (150-450); Red Blood Count 3.61 10^6/uL (4.06-5.63); Red Cell Distribution Width 15.2 % (12-17); White Blood Count 6.4 10^3/uL (3.6-10.2)
[2023-05-30 06:46] LABS: Calcium 9.3 mg/dL (8.6-10.3); Creatinine, Serum 1.41 mg/dL (0.67-1.17); Magnesium 1.9 mg/dL (1.9-2.7); Potassium 3.9 mmol/L (3.5-5.0); eGFR CKD-EPI 52.6 (>60)
[2023-05-30] MEDS: Albuterol/Ipratropium NEB.SOL (2.5/0.5 MG) 3 ML NEB.SOLN INH SCH ×4 (07:19→20:31)
[2023-05-30] MEDS ORDERED: methylPREDNISolone SOD SUCC 40 mg/ml 1 ml VIAL IV SCH (09:00)
[2023-05-30] MEDS: Nicotine PATCH 14 MG/24 HR PATCH TRANSDERM SCH (09:23)
[2023-05-30] MEDS ORDERED: Dextrose 50% Syringe 50 ml 25 GM/50 ML SYRINGE IV PUSH PRN (11:45)
[2023-05-30] MEDS: cefTRIAXone 1 gm/50 mL D5W 1 GM/50 ML BAG IV SCH (16:37)
[2023-05-30 16:44] LABS: Calcium 9.3 mg/dL (8.6-10.3); Creatinine, Serum 1.53 mg/dL (0.67-1.17); eGFR CKD-EPI 47.7 (>60)
[2023-05-30] MEDS: NS 0.9% 250 ml 250 ML IV SCH ×2 (17:21→20:14)
[2023-05-30 17:22] LABS: Ferritin 79.9 ng/mL (24-336)
[2023-05-30] MEDS: Azithromycin 500 mg/250 ml NS 500 MG/250 ML BAG IVPB SCH (17:32)
[2023-05-30] MEDS: Enoxaparin 40 MG/0.4 ML SYR SUBCUT SCH (18:01)
[2023-05-30] MEDS: methylPREDNISolone SOD SUCC 40 mg/ml 1 ml VIAL IV SCH (20:15)
[2023-05-31 06:27] LABS: ABS Lymphocytes 0.9 10^3/uL (1.0-4.8); ABS Monocytes 0.2 10^3/uL (0.0-1.1); ABS Neutrophils 10.4 10^3/uL (1.5-7.6); Hematocrit 26.9 % (38-53); Hemoglobin 9.2 g/dL (13.2-16.3); Lymphocyte % 7.7 %; Mean Corpuscular Hemoglobin 28.4 pg (27-33); Mean Corpuscular Hgb Conc 34.1 g/dL (31-36); Mean Corpuscular Volume 83.4 fL (80-97); Platelet Count 109 10^3/uL (150-450); Red Blood Count 3.23 10^6/uL (4.06-5.63); Red Cell Distribution Width 15.7 % (12-17); White Blood Count 11.5 10^3/uL (3.6-10.2)
[2023-05-31 06:46] LABS: Calcium 8.8 mg/dL (8.6-10.3); Creatinine, Serum 1.39 mg/dL (0.67-1.17); Magnesium 1.8 mg/dL (1.9-2.7); Potassium 4.2 mmol/L (3.5-5.0); eGFR CKD-EPI 53.5 (>60)
[2023-05-31] MEDS ORDERED: Albuterol HFA INHALER 8 gm MDI INH PRN (07:26)
[2023-05-31] MEDS: Albuterol/Ipratropium NEB.SOL (2.5/0.5 MG) 3 ML NEB.SOLN INH SCH (07:42)
[2023-05-31] MEDS ORDERED: Magnesium Sulfate 2 gm BAG 2 GM/50 ML BAG IVPB ONE (08:00)
[2023-05-31] MEDS ORDERED: Mometasone/Formoter 200/5 MDI INH SCH (08:00)
[2023-05-31] MEDS ORDERED: Iron Sucrose 200 MG in NS 0.9% 100 ml BAG 100 ML IVPB SCH (09:00)
[2023-05-31 09:26] VITALS: BP 142/67
[2023-05-31] MEDS: methylPREDNISolone SOD SUCC 40 mg/ml 1 ml VIAL IV SCH (09:38)
[2023-05-31] MEDS: Nicotine PATCH 14 MG/24 HR PATCH TRANSDERM SCH (09:39)
[2023-06-01] MEDS ORDERED: cefTRIAXone 1 gm/50 mL D5W 1 GM/50 ML BAG IV SCH (13:00)
== END 2023-05-31 15:30 | disposition home or self-care (01) | DRG 191 ==
LOC: ED 11:55 → EDHOLD 15:16 → MED 16:06
PROVIDERS: ADMIT Hospitalist; ATTEND Hospitalist